=== PATIENT | female | born 1995 | race Caucasian/White ===

== ENCOUNTER 2017-09-18 12:22 | Emergency (ER) | payer OTHER | END 2017-09-18 15:57 | disposition left against medical advice (07) | LOC: M ED 12:22 | DX: N93.9 Abnormal uterine and vaginal bleeding, unspecified (principal); Z53.21 Procedure and treatment not carried out due to patient leaving prior to being seen by health care provider ==

== ENCOUNTER → 2018-04-12 | Outpatient (REF) | payer OTHER | LOC: M SFHCLERA 14:46 | DX: J02.9 Acute pharyngitis, unspecified (principal) ==

== ENCOUNTER → 2018-11-06 | Outpatient (REF) | payer OTHER ==
[~2018-11-06] MED LIST: OXYC30TA84 PO; TIZA4TAB4 PO
[2018-11-06 16:43] LABS: BASO % 0.4 % (0.0-1.0); EOS # 0.2 10^3/uL (0.0-0.50); EOS % 2.1 % (0.0-3.0); HEMATOCRIT 43.7 % (36.0-47.0); HEMOGLOBIN 14.2 g/dl (12.0-15.5); LYMPH # 2.1 10^3/uL (1.5-6.5); LYMPH % 29.9 % (24.0-44.0); MEAN CORPUSCULAR HEMOGLOBIN 30.3 pg (27.0-33.0); MEAN CORPUSCULAR HGB CONC 32.5 g/dl (32.0-36.5); MEAN CORPUSCULAR VOLUME 93.2 fl (80.0-96.0); MONO # 0.5 10^3/uL (0.0-0.8); NEUTROPHILS # 4.2 10^3/uL (1.8-7.7); NEUTROPHILS % 60.3 % (36.0-66.0); PLATELET COUNT, AUTOMATED 288 10^3/uL (150-450); RED BLOOD COUNT 4.69 10^6/uL (4.00-5.40)
[2018-11-06 16:46] LABS: ALBUMIN 4.4 GM/DL (3.2-5.2); ALT/SGPT 31 U/L (12-78); BILIRUBIN,TOTAL 0.6 MG/DL (0.2-1.0); BLOOD UREA NITROGEN 12 MG/DL (7-18); CALCIUM LEVEL 9.5 MG/DL (8.5-10.1); CARBON DIOXIDE LEVEL 29 MEQ/L (21-32); CHLORIDE LEVEL 102 MEQ/L (98-107); CREATININE FOR GFR 0.69 MG/DL (0.55-1.30); GLOMERULAR FILTRATION RATE > 60.0 (>60); GLUCOSE, FASTING 78 MG/DL (70-100); POTASSIUM SERUM 4.1 MEQ/L (3.5-5.1); SODIUM LEVEL 138 MEQ/L (136-145); TOTAL PROTEIN 7.1 GM/DL (6.4-8.2)
[2018-11-06 17:33] LABS: HIV 1&2 SCREEN CENTAUR NEGATIVE (NEGATIVE)
[2018-11-08 10:41] LABS: HEPATITIS B SURFACE ANTIBODY POSITIVE (POSITIVE)
[2018-11-08 10:52] LABS: HEPATITIS B SURFACE ANTIGEN NEGATIVE (NEGATIVE)
[2018-11-14 00:10] LABS: HEPATITIS A IgG TOTAL Negative (Negative); HEPATITIS C QUANTITATION 77320 IU/mL (.); HEPATITIS C VIRUS GENOTYPE 3 (.)
== END ==
LOC: M SFHCPLAZ 13:08
PROVIDERS: ATTEND Internal Medicine Infectious Disease
DX: B19.21 Unspecified viral hepatitis C with hepatic coma (principal)

== ENCOUNTER → 2019-04-22 | Outpatient (REF) | payer MEDICAID, OTHER ==
[2019-04-22 12:48] LABS: ALT/SGPT 49 U/L (12-78); BILIRUBIN,DIRECT < 0.1 MG/DL (0.0-0.2); BILIRUBIN,TOTAL 0.2 MG/DL (0.2-1.0); TOTAL PROTEIN 7.2 GM/DL (6.4-8.2)
[2019-04-24 14:13] LABS: HEPATITIS C QUANTITATION 345390 IU/mL (.)
== END ==
LOC: M SFHCPLAZ 09:52
PROVIDERS: ATTEND Internal Medicine Infectious Disease
DX: B18.2 Chronic viral hepatitis C (principal)

== ENCOUNTER 2020-01-07 07:44 | Inpatient (IN) | payer MEDICAID, OTHER ==
[2020-01-07] VITALS (10 sets, daily range): BP systolic 114–151; BP diastolic 59–90
[~2020-01-07] VITALS: Ht 149.9 cm; Wt 49.3 kg
[~2020-01-07 07:44] MED LIST changes: +OXYC30TA PO; -OXYC30TA84 PO
[2020-01-07] MEDS ORDERED: LACTATED RINGER'S 1000 ML IV STA (08:11)
[2020-01-07] MEDS ORDERED: PENICILLIN G POTASSIUM IV 5 MU in D5W MINI-BAG PLUS 100 ML IV STA (08:11)
[2020-01-07] MEDS ORDERED: MAGNESIUM *L&D* 4GM/100ML BAG (40MG/ML) As Ordered ONE (08:12)
[2020-01-07] MEDS ORDERED: MAGNESIUM SULFATE 4% INJ 20GM/500ML (40MG/ML) As Ordered ONE (08:12)
[2020-01-07] MEDS ORDERED: BETAMETHASONE SOLUSPAN 6MG/ML 5ML VIAL (J0702 PER 3MG) As Ordered ONE (08:12)
[2020-01-07] MEDS ORDERED: SUBO8MIS SL (08:13)
[2020-01-07] MEDS ORDERED: MAG Sulf (L&D) 4 GM/100 ML 4 GM in IV 1 EA IV ONE (08:15)
[2020-01-07] MEDS ORDERED: BETAMETHASONE SOLUSPAN 6MG/ML 5ML VIAL (J0702 PER 3MG) IM SCH (08:15)
[2020-01-07] MEDS ORDERED: MAG Sulf (OBGYN) 20GM/500ML 20,000 MG in IV 1 EA IV SCH (08:31)
[2020-01-07 08:59] LABS: HEMATOCRIT 36.2 % (36.0-47.0); HEMOGLOBIN 12.3 g/dl (12.0-15.5); MEAN CORPUSCULAR HEMOGLOBIN 30.4 pg (27.0-33.0); MEAN CORPUSCULAR VOLUME 89.4 fl (80.0-96.0); PLATELET COUNT, AUTOMATED 263 10^3/uL (150-450); RED BLOOD COUNT 4.05 10^6/uL (4.00-5.40); WHITE BLOOD COUNT 10.7 10^3/uL (4.0-10.0)
[2020-01-07] MEDS ORDERED: OXYTOCIN 30 UNITS IN 0.9% NaCl 500ML IV BAG (J2590) As Ordered ONE (09:10)
--- NOTE | 2020-01-07 09:34 | HPE ---
DATE OF ADMISSION: 01/07/2020 Sarahi is a 24-year-old 2, para 1-0-0-1. She is at 33-2/7 weeks per her report. She presents to labor and delivery with strong painful contractions that were started yesterday and then dissipated overnight and resurfaced this morning at about 0600 hours. Denies vaginal bleeding or leakage of fluid. Fetus has been active. Her care has been inadequate and spotty. She initiated care [facility] [place]. She reports that she has had maybe 1-2 visits there. The last time she has been seen has been approximately 1 month ago. She cannot remember her last menstrual period nor does she know what her EDC is. This patient history is collected through verbal report from the patient. OBSTETRICAL HISTORY: 2018 - 39 weeks gestation vaginal delivery. MEDICAL HISTORY: Noncontributory. SURGERIES: None. FAMILY HISTORY: Hypertension. There is no records for review. Therefore no labs for review. SOCIAL HISTORY: She says she is . She is a smoker. She denies alcohol use. She does report a history of drug abuse, heroin is her drug of choice. She cannot remember the last time she used. She currently takes Suboxone 8 mg two times a day. She denies any history of sexually transmitted infections. CURRENT MEDICATIONS: - vitamins - Suboxone 8 mg ALLERGIES: No known drug allergies per her report. OBJECTIVE: Temperature 98.2, pulse 76, respirations 20, blood pressure is 143/83. She is alert and oriented times three. She appears very uncomfortable. She is writhing around the bed, crying and screaming with her contractions. The heart rate is 130 with moderate variability, positive accelerations, no decelerations observed. Contractions palpate strong. They are about every 2-3 minutes. Sterile speculum exam noted head seen. Sterile vaginal exam 6 cm dilated, 100% effaced, -1 station. Membranes are intact. She currently has a bulging bag. There is no bleeding. Bedside sonography confirms cephalic presentation. Fundal height of 32 cm. ASSESSMENT: Intrauterine at 33-2/7. heart rate is category one. Active labor. PLAN: Per consult with Dr. Alessandro Sharma, admit the patient to labor and delivery. Start IV fluid bolus. Antibiotics for GBS prophylaxis. Betamethasone for lung maturity. Magnesium sulfate for neurologic protection. labs as well as a urine drug toxicology ordered. Anticipate probably continued labor progress and a spontaneous vaginal delivery. Addendum: Following release and review of records it is noted that her EDC is 01/23/20 based on a 28 week ultrasound. That makes her 37 and 5/7 weeks gestation and a term . Magnesium Sulfate D/Cd. Also noted she is a . She underwent an ETOP 11/2014. MTDD
[2020-01-07] MEDS ORDERED: ACETAMINOPHEN 500 MG TAB PO PRN (09:45)
[2020-01-07] MEDS ORDERED: ACETAMINOPHEN TAB 650MG DOSE (2X325MG) PO PRN (09:45)
[2020-01-07] MEDS ORDERED: IBUPROFEN 600MG TAB PO PRN (09:45)
[2020-01-07] MEDS ORDERED: DOCUSATE SODIUM 100 MG CAP PO PRN (09:45)
[2020-01-07] MEDS ORDERED: OXYTOCIN DRIP 30 UNITS in IV 1 EA IV SCH (09:45)
[2020-01-07] MEDS ORDERED: RHOGAM 300 MCG (1500 IU) INJ (J2790) IM SCH (09:45)
[2020-01-07] MEDS ORDERED: DIBUCAINE 1% OINTMENT 30GM TOP PRN (09:45)
[2020-01-07] MEDS ORDERED: MEASLES,MUMPS,RUBELLA VACCINE INJ (MMR-II) (90707) SC SCH (09:45)
[2020-01-07] MEDS ORDERED: METHYLERGONOVINE MALEATE 0.2 MG TAB PO PRN (09:45)
[2020-01-07] MEDS ORDERED: LIDOCAINE 1% MDV 20ML VIAL INFIL ONE (09:45)
[2020-01-07] MEDS: IBUPROFEN 800 MG TAB PO PRN ×2 (10:07→18:34)
--- NOTE | 2020-01-07 10:18 | DN ---
DATE OF DELIVERY: 01/07/2020 Sarahi is a 24-year-old 3, para 2-0-1-2 now, who was admitted to labor in active labor. She had assisted rupture of membranes for a moderate amount of meconium-stained fluid at 08:55. She reached complete dilation at 09:06. She pushed to a normal spontaneous vaginal delivery of a live female infant in right occipitoanterior (MURIEL) position with restitution to right occipitotransverse (ROT) position. There was no nuchal cord. The shoulders delivered with gentle downward traction, and the corpus immediately followed. The 's mouth and nares were bulb suctioned, and she was placed on the maternal abdomen, crying and active. The cord was clamped times two and cut once pulsations ceased. A cord blood was obtained. Spontaneous expulsion of an intact placenta with three-vessel cord by Jarrett mechanism was at 09:17. Of note, the placenta had a succenturiate lobe completely intact. Uterine hemostasis achieved with intravenous (IV) Pitocin rapid infusion and uterine fundal massage. Estimated blood loss 350 mL. Perineum and vagina inspected. Noted to have bilateral labial lacerations. The lacerations infiltrated with 1% lidocaine and repaired with interrupted sutures of 3-0 Vicryl Rapide. The female weighed 2630 grams, 5 pounds 13 ounces, scores were 8 and 9. Mother is going to bottle-feed the daughter, and she has named her daughter Fernie. At the close of delivery, lap counts, needle counts, and instrument counts were correct and verified.
[2020-01-07 10:52] LABS: HIV 1&2 SCREEN CENTAUR NEGATIVE (NEGATIVE)
[2020-01-07 11:11] LABS: HEPATITIS C VIRUS ABY INDEX > 11.0 INDEX (<0.8)
[2020-01-07] MEDS ORDERED: PENICILLIN G POTASSIUM IV 2.5 MU in IV 1 EA IV SCH (12:00)
[2020-01-07 12:03] LABS: AMPHETAMINES URINE REFLEX NEGATIVE (NEGATIVE); BARBITURATES URINE REFLEX NEGATIVE (NEGATIVE); BENZODIAZEPINES URINE REFLEX NEGATIVE (NEGATIVE); CANNABINOIDS URINE REFLEX NEGATIVE (NEGATIVE); COCAINE METABOLITE URINE REFLE NEGATIVE (NEGATIVE); METHADONE URINE REFLEX NEGATIVE (NEGATIVE); PHENCYCLIDINE URINE REFLEX NEGATIVE (NEGATIVE)
[2020-01-07 12:11] LABS: OPIATES URINE REFLEX PENDING CONFIRMATION (NEGATIVE)
[2020-01-07 13:53] LABS: CHLAMYDIA DNA AMPLIFICATION NEGATIVE (NEGATIVE); GC DNA AMPLIFICATION NEGATIVE (NEGATIVE)
[2020-01-07] MEDS ORDERED: BUPR1SUB4 SL (17:19)
[2020-01-07] MEDS ORDERED: PILL CUTTER 1 EACH XX PRN (17:30)
[2020-01-07] MEDS: BUPRENORPHINE/NALOXONE 8-2MG SUBLINGUAL TABLET(SUBOXONE) SL SCH (20:38)
[2020-01-08 06:27] VITALS: BP 112/68
[2020-01-08] MEDS ORDERED: PRENATAL VITAMINS CHEWABLE TABLET PO SCH (09:00)
[2020-01-08] MEDS: BUPRENORPHINE/NALOXONE 8-2MG SUBLINGUAL TABLET(SUBOXONE) SL SCH (09:15)
[2020-01-08] MEDS ORDERED: BUPRENORPHINE/NALOXONE 8-2MG SUBLINGUAL TABLET(SUBOXONE) SL SCH (12:00)
[2020-01-09] MEDS ORDERED: BOOSTRIX/ADACEL VACCINE (DIPHTH/PERTUSS/ACELL/TETANUS) 0.5ML SYR IM ONE (09:00)
[2020-02-02 08:06] LABS: Codeine Negative (Cutoff=200); GC Morphine 434 ng/mL (Cutoff=200); Morphine Positive (.); Opiates Positive (.)
== END 2020-01-09 13:00 | disposition home or self-care (01) | DRG 560 ==
LOC: M LDO 07:44 → M LDI 08:10 → M OBS 11:15
PROVIDERS: ADMIT Advanced Practice Midwife; ATTEND Advanced Practice Midwife
PROC: 10E0XZZ Delivery of Products of Conception, External Approach (ICD-10-PCS; principal; 2020-01-07)
PROC: 10907ZC Drainage of Amniotic Fluid, Therapeutic from Products of Conception, Via Natural or Artificial Opening (ICD-10-PCS; 2020-01-07)
PROC: 0HQ9XZZ Repair Perineum Skin, External Approach (ICD-10-PCS; 2020-01-07)
DX: O99.334 Smoking (tobacco) complicating childbirth (principal); F17.210 Nicotine dependence, cigarettes, uncomplicated; Z3A.37 37 weeks gestation of pregnancy; Z37.0 Single live birth; O70.0 First degree perineal laceration during delivery

== ENCOUNTER 2022-03-12 14:03 | Emergency (ER) | payer OTHER ==
[~2022-03-12] VITALS: Ht 149.9 cm; Wt 50.0 kg
[~2022-03-12 14:03] MED LIST changes: +BUPR1SUB4 SL; +SUBO8MIS SL; +TIZA10TA PO; -TIZA4TAB4 PO
[2022-03-12 15:49] LABS: BASO % 0.2 % (0.0-1.0); EOS # 0.1 10^3/uL (0.0-0.5); EOS % 0.6 % (0.0-3.0); HEMATOCRIT 40.7 % (36.0-47.0); HEMOGLOBIN 14.4 g/dl (12.0-15.5); LYMPH # 1.1 10^3/uL (1.5-5.0); LYMPH % 13.7 % (24.0-44.0); MEAN CORPUSCULAR HEMOGLOBIN 30.6 pg (27.0-33.0); MEAN CORPUSCULAR HGB CONC 35.4 g/dl (32.0-36.5); MEAN CORPUSCULAR VOLUME 86.6 fl (80.0-96.0); MONO # 0.5 10^3/uL (0.0-0.8); MONO % 6.2 % (2.0-8.0); NEUTROPHILS # 6.5 10^3/uL (1.5-8.5); NEUTROPHILS % 79.1 % (36.0-66.0); PLATELET COUNT, AUTOMATED 282 10^3/uL (150-450); WHITE BLOOD COUNT 8.2 10^3/uL (4.0-10.0)
[2022-03-12 16:17] LABS: HCG, SERUM QUALITATIVE POSITIVE (NEGATIVE)
[2022-03-12 16:24] LABS: ALBUMIN 3.7 GM/DL (3.2-5.2); ALT/SGPT 18 U/L (12-78); BILIRUBIN,DIRECT 0.2 MG/DL (0.0-0.2); BILIRUBIN,TOTAL 0.6 MG/DL (0.2-1.0); BLOOD UREA NITROGEN 12 MG/DL (7-18); CALCIUM LEVEL 9.3 MG/DL (8.5-10.1); CARBON DIOXIDE LEVEL 25 MEQ/L (21-32); CHLORIDE LEVEL 99 MEQ/L (98-107); CREATININE FOR GFR 0.74 MG/DL (0.55-1.30); GLOMERULAR FILTRATION RATE > 60.0 (>60); GLUCOSE, FASTING 81 MG/DL (70-100); LIPASE 44 U/L (73-393); POTASSIUM SERUM 3.9 MEQ/L (3.5-5.1); SODIUM LEVEL 132 MEQ/L (136-145); TOTAL PROTEIN 7.3 GM/DL (6.4-8.2)
[2022-03-12 16:25] LABS: CK-MB VALUE MASS < 1.0 NG/ML (<3.6); CPK CREATINE PHOSPHOKINASE 22 U/L (26-192); MB/CK RELATIVE INDEX 4.55 (< OR =4)
[2022-03-12 16:55] LABS: HCG, SERUM QUANTITATIVE 90175 MIU/ML
[2022-03-12 17:32] LABS: AMPHETAMINES LEVEL URINE NEGATIVE (NEGATIVE); BARBITURATES URINE NEGATIVE (NEGATIVE); BENZODIAZEPINES URINE NEGATIVE (NEGATIVE); CANNABINOIDS URINE POSITIVE (NEGATIVE); COCAINE METABOLITE URINE NEGATIVE (NEGATIVE); METHADONE URINE POSITIVE (NEGATIVE); OPIATES URINE POSITIVE (NEGATIVE); PHENCYCLIDINE URINE NEGATIVE (NEGATIVE)
[2022-03-12 18:13] VITALS: BP 112/60
== END 2022-03-12 18:15 | disposition home or self-care (01) ==
LOC: M ED 14:03
DX: O99.321 Drug use complicating pregnancy, first trimester (principal); O99.341 Other mental disorders complicating pregnancy, first trimester; O99.331 Smoking (tobacco) complicating pregnancy, first trimester; Z3A.01 Less than 8 weeks gestation of pregnancy

== ENCOUNTER 2022-09-28 01:46 | Emergency (ER) | payer OTHER ==
[~2022-09-28] VITALS: Ht 149.9 cm; Wt 45.3 kg
[2022-09-28] MEDS ORDERED: LORazepam 2 MG/ML 1ML VIAL IV STA (02:04)
[2022-09-28 05:15] VITALS: BP 110/77
== END 2022-09-28 05:22 | disposition home or self-care (01) ==
LOC: M ED 01:46
DX: F19.10 Other psychoactive substance abuse, uncomplicated (principal); B19.20 Unspecified viral hepatitis C without hepatic coma
CPT/HCPCS: 96374; 99284; J2060

== ENCOUNTER 2023-07-12 18:41 | Emergency (ER) | payer OTHER, SELFPAY ==
[~2023-07-12] VITALS: Ht 149.9 cm; Wt 54.0 kg
[2023-07-12 19:00] VITALS: BP 130/72; TEMP 99.6; O2SAT 100
[2023-07-12] MEDS ORDERED: ISOVUE-370 76% 100ML VIAL As Ordered ONE (19:29)
[2023-07-12] MEDS ORDERED: NS 1,000 ML IV ONE (19:30)
[2023-07-12 20:09] LABS: VENOUS BASE EXCESS -3.5 (-2.0-2.0); VENOUS HCO3 21.6 MMOL/L (23.0-27.0); VENOUS O2 SATURATION 84.8 % (60.0-80.0); VENOUS PARTIAL PRESSURE O2 47.9 mmHg (30.0-50.0); VENOUS PH 7.361 UNITS (7.330-7.430); VENOUS STANDARD HCO3 21.3 MMOL/L; VENOUS TOTAL CO2 22.8 MMOL/L (24.0-28.0)
[2023-07-12 20:17] LABS: BASO % 0.3 % (0.0-1.0); EOS # 0.1 10^3/uL (0.0-0.5); HEMATOCRIT 37.2 % (36.0-47.0); HEMOGLOBIN 12.4 g/dl (12.0-15.5); LYMPH # 0.9 10^3/uL (1.5-5.0); LYMPH % 12.4 % (24.0-44.0); MEAN CORPUSCULAR HEMOGLOBIN 30.2 pg (27.0-33.0); MEAN CORPUSCULAR HGB CONC 33.3 g/dl (32.0-36.5); MEAN CORPUSCULAR VOLUME 90.7 fl (80.0-96.0); MONO # 0.6 10^3/uL (0.0-0.8); MONO % 8.8 % (2.0-8.0); NEUTROPHILS # 5.4 10^3/uL (1.5-8.5); NEUTROPHILS % 76.4 % (36.0-66.0); PLATELET COUNT, AUTOMATED 208 10^3/uL (150-450)
[2023-07-12] MEDS: fentaNYL 100 MCG/2 ML INJECTION IV PRN ×2 (20:27→22:44)
[2023-07-12 20:29] LABS: INR 1.03; PARTIAL THROMBOPLASTIN TIME 24.2 SECONDS (24.8-34.2); PROTHROMBIN TIME 13.2 SECONDS (12.5-14.5)
[2023-07-12 20:43] LABS: CK-MB VALUE MASS 1.3 NG/ML (<3.6); LIPASE 19 U/L (12-53)
[2023-07-12 20:44] LABS: AMYLASE 40 U/L (30-118); ETHYL ALCOHOL (ETHANOL) < 0.003 % (0.000-0.010)
[2023-07-12 20:45] LABS: ALKALINE PHOSPHATASE 66 U/L (46-116); ALT/SGPT 21 U/L (7.0-40); AST/SGOT 25 U/L (<34); BILIRUBIN,DIRECT < 0.1 MG/DL (<0.4); BILIRUBIN,TOTAL 0.2 MG/DL (0.3-1.2); BLOOD UREA NITROGEN 12 MG/DL (9-23); CARBON DIOXIDE LEVEL 28 MMOL/L (20-31); CHLORIDE LEVEL 103 MMOL/L (98-107); CREATININE FOR GFR 0.55 MG/DL (0.55-1.30); GLOMERULAR FILTRATION RATE > 60.0 (>60); GLUCOSE, FASTING 100 MG/DL (60-100); HCG, SERUM QUALITATIVE NEGATIVE (NEGATIVE); POTASSIUM SERUM 3.8 MMOL/L (3.5-5.1); SODIUM LEVEL 134 MMOL/L (136-145); TOTAL PROTEIN 5.7 G/DL (5.7-8.2)
[2023-07-12] MEDS ORDERED: PIPERACILLIN/TAZOBACTAM SOD 4.5 GM in D5W MINI-BAG PLUS 50 ML IV ONE (20:45)
[2023-07-12] MEDS ORDERED: BOOSTRIX VACCINE (TETANUS/DIPHTH/ACEL. PERTUSSIS) 0.5ML SYR IM.IMMUN ONE (20:45)
[2023-07-12 20:47] LABS: CPK CREATINE PHOSPHOKINASE 107 U/L (34-145); MB/CK RELATIVE INDEX 1.21 (< OR =4)
[2023-07-12] MEDS ORDERED: LIDOCAINE 2% MDV 20ML VIAL SC ONE (21:15)
[2023-07-12 23:01] LABS: AMORPHOUS SEDIMENT SMALL (NEGATIVE); APPEARANCE, URINE TURBID (CLEAR); BACTERIA, URINE AUTO 2+ (NEGATIVE); BILIRUBIN, URINE AUTO NEGATIVE (NEGATIVE); BLOOD, URINE BLOOD 1+ (NEGATIVE); COLOR, URINE YELLOW (YELLOW); GLUCOSE, URINE (UA) AUTO NEGATIVE (NEGATIVE); KETONE, URINE AUTO NEGATIVE (NEGATIVE); LEUKOCYTE ESTERASE, URINE AUTO 3+ (NEGATIVE); NITRITE, URINE AUTO NEGATIVE (NEGATIVE); PROTEIN, URINE AUTO NEGATIVE (NEGATIVE); RBC, URINE AUTO 3 /HPF (0-3); SPECIFIC GRAVITY URINE AUTO 1.002 (1.002-1.035); SQUAMOUS EPITHELIAL CELL UR AU 8 /HPF (0-6); UROBILINOGEN, URINE AUTO 0.2 mg/dL (0.0-2.0); WBC, URINE AUTO 16 /HPF (0-3)
[2023-07-12 23:23] LABS: AMPHETAMINES LEVEL URINE NEGATIVE (NEGATIVE); BARBITURATES URINE NEGATIVE (NEGATIVE); BENZODIAZEPINES URINE NEGATIVE (NEGATIVE); COCAINE METABOLITE URINE NEGATIVE (NEGATIVE); METHADONE URINE NEGATIVE (NEGATIVE); OPIATES URINE NEGATIVE (NEGATIVE); PHENCYCLIDINE URINE NEGATIVE (NEGATIVE)
[2023-07-12 23:24] LABS: CANNABINOIDS URINE NEGATIVE (NEGATIVE)
[2023-07-13] MEDS ORDERED: MIDAZOLAM INJ 2MG/2ML VIAL IV STA (00:28)
[2023-07-13] MEDS ORDERED: AMOX875T2 PO (00:53)
== END 2023-07-13 01:28 | disposition left against medical advice (07) ==
LOC: M ED 18:41
DX: S01.311A Laceration without foreign body of right ear, initial encounter (principal); V03.10XA Pedestrian on foot injured in collision with car, pick-up truck or van in traffic accident, initial encounter; Y92.410 Unspecified street and highway as the place of occurrence of the external cause; Y93.01 Activity, walking, marching and hiking; Y99.8 Other external cause status; Z53.29 Procedure and treatment not carried out because of patient's decision for other reasons
CPT/HCPCS: 70450; 70486; 71260; 72125; 73030; 73590; 73610; 74177; 80048; 80076; 80307; 81001; 82077; 82150; 82550; 82553; 82803; 83605; 83690; 84484; 84703; 85025; 85610; 85730; 86850; 86900; 86901; 90471; 90715; 96361; 96365; 96375; 99284; J2250; J2543; J3010; Q9967

== ENCOUNTER → 2024-08-07 | Outpatient (CLI) | payer OTHER ==
[~2024-08-07] MED LIST changes: +AMOX875T2 PO
== END ==
LOC: M OUTALCOH 12:10
PROVIDERS: ATTEND Psychiatry & Neurology Psychiatry
DX: F11.20 Opioid dependence, uncomplicated (principal); F15.20 Other stimulant dependence, uncomplicated; F17.200 Nicotine dependence, unspecified, uncomplicated

== ENCOUNTER 2024-08-13 14:56 | Outpatient (RCR) | payer OTHER | END 2024-08-15 | LOC: M OUTALCOH 14:56 | PROVIDERS: ATTEND Psychiatry & Neurology Psychiatry | DX: F11.20 Opioid dependence, uncomplicated (principal); F15.20 Other stimulant dependence, uncomplicated; F17.200 Nicotine dependence, unspecified, uncomplicated ==

== ENCOUNTER → 2024-09-15 | Outpatient (RCR) | payer OTHER | LOC: M OUTALCOH 08-18 14:00 | PROVIDERS: ATTEND Psychiatry & Neurology Psychiatry | DX: F11.20 Opioid dependence, uncomplicated (principal); F15.20 Other stimulant dependence, uncomplicated; F17.200 Nicotine dependence, unspecified, uncomplicated ==

== ENCOUNTER 2024-09-29 09:58 | Outpatient (RCR) | payer OTHER | END 2024-10-15 | LOC: M OUTALCOH 09:58 | PROVIDERS: ATTEND Psychiatry & Neurology Psychiatry | DX: F11.20 Opioid dependence, uncomplicated (principal); F15.20 Other stimulant dependence, uncomplicated; F17.200 Nicotine dependence, unspecified, uncomplicated ==

== ENCOUNTER 2025-01-13 10:27 | Outpatient (RCR) | payer OTHER | END 2025-01-15 | LOC: M OUTALCOH 10:27 | PROVIDERS: ATTEND Psychiatry & Neurology Psychiatry | DX: F11.20 Opioid dependence, uncomplicated (principal); F15.20 Other stimulant dependence, uncomplicated; F17.200 Nicotine dependence, unspecified, uncomplicated ==

== ENCOUNTER 2025-01-23 08:57 | Outpatient (RCR) | payer OTHER | END 2025-02-15 | LOC: M OUTALCOH 08:57 | PROVIDERS: ATTEND Psychiatry & Neurology Psychiatry | DX: F11.20 Opioid dependence, uncomplicated (principal); F15.20 Other stimulant dependence, uncomplicated; F17.200 Nicotine dependence, unspecified, uncomplicated ==

== ENCOUNTER 2025-03-16 10:07 | Outpatient (RCR) | payer OTHER | END 2025-03-17 | LOC: M OUTALCOH 10:07 | PROVIDERS: ATTEND Psychiatry & Neurology Psychiatry | DX: F11.20 Opioid dependence, uncomplicated (principal); F15.20 Other stimulant dependence, uncomplicated; F17.200 Nicotine dependence, unspecified, uncomplicated; B18.2 Chronic viral hepatitis C ==

== ENCOUNTER → 2025-03-16 | Outpatient (CLI) | payer OTHER | LOC: M PLALAB 10:41 | PROVIDERS: ATTEND Internal Medicine | DX: B18.2 Chronic viral hepatitis C (principal) ==

== ENCOUNTER 2025-04-16 10:57 | Outpatient (RCR) | payer OTHER | END 2025-04-17 | LOC: M OUTALCOH 10:57 | PROVIDERS: ATTEND Psychiatry & Neurology Psychiatry | DX: F11.20 Opioid dependence, uncomplicated (principal); F15.20 Other stimulant dependence, uncomplicated; F17.200 Nicotine dependence, unspecified, uncomplicated ==